=== PATIENT | male | born 1995 | race Caucasian/White ===

== ENCOUNTER 2023-05-29 00:44 | Emergency (ER) | payer BC ==
[2023-05-29] MEDS ORDERED: TORAdol 30 mg Injection IM ONE (00:53)
[2023-05-29] MEDS ORDERED: DECADRON 10MG INJ. IM ONE (00:53)
[2023-05-29] MEDS ORDERED: DECADRON 10MG INJ. ONE (00:57)
[2023-05-29] MEDS ORDERED: TORAdol 30 mg Injection ONE (00:57)
--- NOTE | 2023-05-29 01:00 | ERPHSYRPT ---
- History of Present Illness Time Seen by Provider: 05/29/23 00:56 Source: patient Exam Limitations: no limitations Physician History: Patient is 28-year-old male presents to our ED with acute back pain. Patient states he was exercising. Patient bent forward while he was at the gym and felt an acute onset pain. Pain comes and goes in spasms. Pain is localized just r ight of midline. Pain reproduced with movement and palpation. Pain improved with rest. Pain is localized. No radiation. No associated symptomology. No nausea vomiting or diaphoresis. No recent back procedures. No fever. No change in bowel bladder function. No saddle anesthesia. No lower extremity weakness. Patient is ambulatory. Patient is otherwise healthy. Significant other at bedside. They voiced no other complaints or concerns at this time. Portions of this note were created with voice recognition technology. There may be grammatical, spelling, punctuation or sound alike errors Timing/Duration: today Method of Injury: bending Quality: aching (No radiation pain localized) Back Pain Location: lumbar spine Severity of Pain-Max: moderate Severity of Pain-Current: mild Modifying Factors: Improves With: movement (Movement and palpation reproduce pain) Associated Symptoms: denies symptoms Previous symptoms: same symptoms as today (Patient fell and injured his back approximately 3 years ago. Patient has since fully recovered. Patient's pain isBelieved to be unrelated to previous injury.) Body Map: 1 - Pain just right of midline at the lumbar paraspinal musculature at the level of L5-S1 Allergies/Adverse Reactions: No Known Drug Allergies Allergy (Unverified 05/29/23 00:51) - Review of Systems Constitutional: No Symptoms, No Fever, No Chills Eyes: No Symptoms Ears, Nose, & Throat: No Symptoms Respiratory: No Symptoms, No Cough, No Dyspnea Cardiac: No Symptoms, No Chest Pain, No Edema, No Syncope Abdominal/Gastrointestinal: No Symptoms, No Abdominal Pain, No Nausea, No Vomiting, No Diarrhea Genitourinary Symptoms: No Symptoms, No Dysuria Musculoskeletal: No Symptoms, No Back Pain, No Neck Pain Skin: No Rash Neurological: No Symptoms, No Dizziness, No Focal Weakness, No Sensory Changes Psychological: No Symptoms Endocrine: No Symptoms Hematologic/Lymphatic: No Symptoms Immunological/Allergic: No Symptoms All Other Systems: Reviewed and Negative - Nursing Vital Signs Nursing Vital Signs: Initial Vital Signs Pulse Rate 88 05/29/23 00:51 Blood Pressure 149/92 05/29/23 00:51 O2 Sat by Pulse Oximetry 95 05/29/23 00:51 Pain Scale Pain Intensity [] 3 Pain Intensity 2 - Physical Exam General Appearance: no apparent distress, alert Eye Exam: PERRL/EOMI, eyes nml inspection Neck Exam: normal inspection, full range of motion, No meningismus, No midline tenderness Respiratory Exam: normal breath sounds, airway intact, No respiratory distress Cardiovascular Exam: regular rate/rhythm, normal heart sounds Gastrointestinal Exam: soft, No tenderness, No mass Extremity Exam: normal inspection, normal range of motion, No calf tenderness, No pedal edema Neurologic Exam: alert, oriented x 3, cooperative, day care teacher II-XII nml as tested, normal mood/affect, nml station & gait, sensation nml, No motor deficits Skin Exam: normal color, warm, dry, No rash Lymphatic Exam: No adenopathy SpO2 Interpretation: normal SpO2: 98 O2 Delivery: Room Air - Course Nursing assessment & vital signs reviewed: Yes - CT Exams Lumbar Spine CT Interpretation: Tele-radiologist Report (No fractures dislocations. No acute pathology observed. Posterior disc osteophyte causing indentation of thecal sac) Ordered Tests: Active Orders 24 hr Category Date Time Status LUMBAR SPINE W/O [CT] Stat Exams 05/29/23 00:52 Taken Medication Summary Discontinued Medications Generic Name Dose Route Start Last Admin Trade Name Ray PRN Reason Stop Dose Admin Dexamethasone Sodium Phosphate 10 mg 05/29/23 00:53 05/29/23 01:00 Dexamethasone Sod Phosphate 10 Mg/Ml IM 05/29/23 00:54 10 mg STAT ONE Administration Dexamethasone Sodium Phosphate Confirm 05/29/23 00:57 Dexamethasone Sod Phosphate 10 Mg/Ml Administered 05/29/23 00:58 Dose 10 mg .ROUTE .STK-MED ONE Ketorolac Tromethamine 60 mg 05/29/23 00:53 05/29/23 01:00 Ketorolac Tromethamine 30 Mg/Ml Inj IM 05/29/23 00:54 60 mg STAT ONE Administration Ketorolac Tromethamine Confirm 05/29/23 00:57 Ketorolac Tromethamine 30 Mg/Ml Inj Administered 05/29/23 00:58 Dose 60 mg .ROUTE .Cocodot ONE - Progress Progress: improved Progress Note: Patient is a 28-year-old male presents with our ED for evaluation of low back pain. Pain started while exercising. Patient was bending forward when pain occurred. No blunt trauma no falls no injuries. Pain localized. No radiation. Pain worse with movement and palpation of the lumbar spine near L5-S1. No systemic manifestations of symptoms. CT lumbar spine essentially negative for a cute pathology. There is a posterior disc osteophyte complex at L5-S1 causing indentation of the thecal sac. Patient treated with Decadron and Toradol. Patient reassessed. Pain significantly improved. Patient is ambulatory. He expresses no significant pain. Patient states he is ready for discharge. Patient advised to follow-up with his primary care doctor within 48 hours for reevaluation. Patient agrees to do so. He voices no other complaints or concerns at this time. Portions of this note were created with voice recognition technology. There may be grammatical, spelling, punctuation or sound alike errors Complexity of problem addressed is moderate acute complicated. COPA (number of complexity of problem addressed) Minimal, Straight forward, one self limited or minor problem Low. Acute uncomplicated stable +/- admission, Any acute or chronic illness, 2 or more self-limited or minor problems. Moderate. Acute, complicated or with systemic illness. Chronic illness with exacerbation, New diagnosis with uncertain prognosis. 2 or more chronic stable illnesses. High. Any severe exacerbation or threat to bodily function, Any treatment side effects Complex of data reviewed and analyzed is moderate. CT scan report reviewed and analyzed.. Clinical correlation made between findings and history and physical exam. The results were instrumental in management and final disposition. Risk of complication and or risk of morbidity/mortality patient management is moderate. A prescription for Toradol for to the patient's pharmacy. Patient reassessed. Pain significantly improved but not completely resolved. Patient is functional patient able to stand and ambulate. Patient feels much better. Diagnosis is lumbosacral strain, back spasm. Time spent to discharge patient is approximately 15 minutes. Plan of care established for shared decision making. No social determinants of health present to impede follow-up. Portions of this note were created with voice recognition technology. There may be grammatical, spelling, punctuation or sound alike errors 05/29/23 03:18 Counseled pt/family regarding: diagnosis, need for follow-up, rad results - Departure Departure Disposition: Home Clinical Impression: Lumbosacral strain, Muscle spasm Condition: Stable Critical Care Time: No Referrals: DOCTOR,NO FAMILY [Primary Care Provider] - Follow up/PCP as directed Instructions: Low Back Pain (DC) Additional Instructions: Discharge/Care Plan ELIAN RODRIGUEZ was seen on 05/29/23 in the Emergency Room. The patient was counseled regarding Diagnosis,Lab results, Imaging studies, need for follow up and when to return to the Emergency Room. Prescriptions given: Discharge Note I have spoken with the patient and/or caregivers. I have explained the patient's condition, diagnosis and treatment plan based on the information available to me at this time. I have answered the patient's and/or caregiver's questions and addressed any concerns. The patient and/or caregivers have as good understanding of the patient's diagnosis, condition and treatment plan as can be expected at this point. The vital signs have been stable. The patient's condition is stable and appropriate for discharge from the emergency department. The patient will pursue further outpatient evaluation with the primary care physician or other designated or consulting physician as outlined in the discharge instructions. The patient and/or caregivers are agreeable to this plan of care and follow-up instructions have been explained in detail. The patient and/or caregivers have received these instruction. The patient/and or caregivers are aware that any significant change in condition or worsening of symptoms should prompt an immediate return to this or the closest emergency department or call 911. Prescriptions: Ketorolac Trometh 10 mg Tab [TORAdol 10 MG TABLET] 10 mg PO TID 5 Days #15 tablet
[2023-05-29 01:04] VITALS: TEMP 98.4
[2023-05-29 02:30] VITALS: RESP 17
[2023-05-29 03:17] VITALS: BP 119/80; PULSE 80; O2SAT 98
--- NOTE | 2023-06-02 17:30 | XRAY ---
CLINICAL HISTORY:Pain lumbar status post injury. COMPARISON:None. TECHNIQUES:CT scan of lumbar spine done. Axial images were obtained with reformatted coronal and sagittal images and submitted for interpretation. CTDI Vol: 17.24mGy, DLP : 494mGy*cm. FINDINGS: No acute bony fracture or soft tissue pathology noted. Preserved physiological lumbar lordosis. Normal vertebral body height and alignment. L1-L2: There is no significant disc herniation or neural foraminal narrowing visualized. The central canal is unremarkable. No sign of lateral recess stenosis. Nerve roots are normal. L2-L3: There is no significant disc herniation or neural foraminal narrowing visualized. The central canal is unremarkable. No sign of lateral recess stenosis. Nerve roots are normal. L3-L4: There is no significant disc herniation or neural foraminal narrowing visualized. The central canal is unremarkable. No sign of lateral recess stenosis. Nerve roots are normal. L4-L5: There is no significant disc herniation or neural foraminal narrowing visualized. The central canal is unremarkable. Nerve roots are normal. L5-S1: There is posterior disc osteophyte complexes L5-S1 measuring 4.6 mm which is causing indentation on thecal sac. No retro paraspinal soft tissue masses. No developmental canal stenosis. IMPRESSION: No acute bony fracture or soft tissue pathology. Posterior disc osteophyte complexes L5-S1 causing indentation on thecal sac. MRI lumbosacral spine would be helpful for further evaluation if indicated. Electronically Signed by: Laureen Ibarra MD. (05/29/2023 01:54:10 GRADUATE RECRUITER)
== END 2023-05-29 03:16 | disposition home or self-care (01) ==
LOC: ED 00:44
DX: S39.012A Strain of muscle, fascia and tendon of lower back, initial encounter (principal); X50.0XXA Overexertion from strenuous movement or load, initial encounter; Y93.B9 Activity, other involving muscle strengthening exercises; Y92.39 Other specified sports and athletic area as the place of occurrence of the external cause; M62.830 Muscle spasm of back
CPT/HCPCS: 72131; 96372; 99283; J1100; J1885